=== PATIENT | male | born 1965 | race Two or more races ===

== ENCOUNTER 2025-04-09 00:22 | Emergency (ER) | payer OTHER ==
[~2025-04-09] VITALS: Ht 157.5 cm; Wt 67.6 kg
[2025-04-09] MEDS ORDERED: FAMOTIDINE/PF 20 MG in 0.9 % SODIUM CHLORIDE 8 ML IV PUSH STA (01:06)
[2025-04-09] MEDS ORDERED: 0.9 % SODIUM CHLORIDE 1,000 ML IV SCH (01:15)
[2025-04-09 01:50] LABS: BASO % 1.5 % (0.1-1.2); EOS # 0.06 (0.04-0.54); EOS % 1.3 % (0.7-7.0); HEMATOCRIT 34.9 % (40.1-51.0); HEMOGLOBIN 11.6 g/dL (13.7-17.5); LYMPH # 1.09 (1.18-3.74); LYMPH % 23.6 % (19.3-53.1); MONO # 0.37 (0.24-0.82); NEUT # 3.03 (1.56-6.13); NEUT % 65.6 % (34.0-71.1); PLATELET COUNT 252 K/uL (163-369); RED BLOOD COUNT 4.47 M/uL (4.63-6.08); RED CELL DISTRIBUTION WIDTH 15.1 % (11.6-14.4)
[2025-04-09 02:18] LABS: BILIRUBIN TOTAL 0.35 mg/dL (0.3-1.2); CREATININE SERUM 0.92 mg/dL (0.70-1.30); GFR 84.2; GLOBULINA 3.4 G/DL (2.4-3.5); POTASSIUM 4.2 mEq/L (3.5-5.1); TOTAL PROTEIN 7.4 gm/dL (6.4-8.2)
[2025-04-09] MEDS ORDERED: CIPRO500 MG PO (06:55)
[2025-04-09] MEDS ORDERED: METRONIDAZOLE500 MG PO (06:55)
[2025-04-09] MEDS ORDERED: LEVSIN/SL0.125 MG SL (06:55)
[2025-04-09] MEDS ORDERED: PROTONIX40 MG PO (06:55)
[2025-04-09] MEDS ORDERED: CIPROFLOXACIN HCL 500 MG TABLET PO ONE (07:00)
[2025-04-09] MEDS ORDERED: METROnidazole 500 MG TABLET PO ONE ×2 (07:00→07:16)
== END 2025-04-09 09:38 | disposition home or self-care (01) ==
LOC: ER 00:22
PROVIDERS: General Practice
DX: K62.5 Hemorrhage of anus and rectum (principal); K52.9 Noninfective gastroenteritis and colitis, unspecified; I10 Essential (primary) hypertension
CPT/HCPCS: 36415; 74177; Q9965